=== PATIENT | female | born 1960 | race Caucasian/White ===

== ENCOUNTER 2020-05-13 07:27 | Inpatient (IN) | payer BC ==
[~2020-05-13] VITALS: Ht 162.6 cm; Wt 49.4 kg
[2020-05-13] MEDS ORDERED: ONDANSETRON HCL INJ 2MG/ML 2ML 2 MG/ML VIAL IV STA (07:50)
[2020-05-13] MEDS ORDERED: MORPHINE SULFATE 2 MG/ML SYR 1ML IV STA (07:50)
[2020-05-13] MEDS ORDERED: PANTOPRAZOLE 40 MG 10ML VIAL IV STA (07:50)
[2020-05-13] MEDS ORDERED: SODIUM CHLORIDE 0.9% 1000ML 1,000 ML IV STA (07:50)
[2020-05-13] MEDS ORDERED: SODIUM CHLORIDE 0.9% 1000ML 1,000 ML ONE (08:02)
[2020-05-13 08:10] LABS: BASOPHILS # (AUTO) 0.1 (0.0-0.1); BASOPHILS % 0.5 % (0.0-1.0); EOSINOPHILS # (AUTO) 0.1 (0.0-0.4); EOSINOPHILS % 0.7 % (0.0-6.0); HEMATOCRIT 41.2 % (34.2-44.1); LYMPHOCYTES # (AUTO) 0.8 (1.0-3.2); LYMPHOCYTES % 7.5 % (18.0-39.1); MEAN CORPUSCULAR HEMOGLOBIN 29.6 pg (28-32); MEAN CORPUSCULAR HGB CONC 31.6 g/dL (31-35); MEAN CORPUSCULAR VOLUME 93.8 fL (81-99); MONOCYTES # (AUTO) 1.1 (0.2-0.8); MONOCYTES % 10.8 % (4.4-11.3); NEUTROPHILS # (AUTO) 7.9 (2.1-6.9); NEUTROPHILS % 78.5 % (38.7-80.0); PLATELET COUNT 326 x10e3/uL (140-360); RED BLOOD COUNT 4.39 x10e6/uL (3.6-5.1); RED CELL DISTRIBUTION WIDTH 12.2 % (11.7-14.4)
[2020-05-13 08:20] LABS: INR 0.85; PROTHROMBIN TIME 12.1 seconds (11.9-14.5)
[2020-05-13 08:21] LABS: PARTIAL THROMBOPLASTIN TIME 28.4 seconds (23.8-35.5)
[2020-05-13 08:29] LABS: ALANINE AMINOTRANSFERASE 48 IU/L (0-55); ALBUMIN 3.5 g/dL (3.5-5.0); ALBUMIN/GLOBULIN RATIO 0.8 (0.8-2.0); ALKALINE PHOSPHATASE 113 IU/L (40-150); AMYLASE 54 U/L (25-125); ANION GAP 17.6 mmol/L (8-16); BLOOD UREA NITROGEN 16 mg/dL (7-26); BUN/CREATININE RATIO 12 (6-25); CALCIUM 9.7 mg/dL (8.4-10.2); CARBON DIOXIDE 27 mmol/L (22-29); CHLORIDE 100 mmol/L (98-107); CREATINE KINASE 13 IU/L (29-168); CREATININE, SERUM 1.31 mg/dL (0.57-1.11); EST GLOMERULAR FILTRATION RATE 41 ML/MIN (60-); GLUCOSE 102 mg/dL (74-118); LIPASE 29 U/L (8-78); MAGNESIUM 2.4 MG/DL (1.3-2.1); POTASSIUM 4.6 mmol/L (3.5-5.1); SODIUM 140 mmol/L (136-145)
[2020-05-13 09:26] LABS: CLARITY,URINE HAZY (CLEAR); COLOR,URINE YELLOW (YELLOW); KETONES,URINE TRACE (NEGATIVE); LEUKOCYTE ESTERASE ,URINE MODERATE (NEGATIVE); NITRITE,URINE NEGATIVE (NEGATIVE); PROTEIN,URINE DIPSTICK TRACE (NEGATIVE); URINE UROBILINOGEN 1 mg/dL (0.2 - 1)
[2020-05-13 09:45] LABS: BACTERIA,URINE MODERATE /HPF; EPITHELIAL CELLS,URINE FEW /LPF; MUCUS,URINE RARE (RARE); WBC,URINE (MAN) >50 /HPF (0-5)
[2020-05-13] MEDS ORDERED: ONDANSETRON HCL INJ 2MG/ML 2ML 2 MG/ML VIAL IV PRN (12:00)
[2020-05-13] MEDS ORDERED: MORPHINE SULFATE 2 MG/ML SYR 1ML IV PRN (12:00)
[2020-05-13 13:03] VITALS: BP 134/86
[2020-05-13] MEDS: SODIUM CHLORIDE 0.9% 1000ML 1,000 ML IV SCH ×2 (13:10→23:49)
[2020-05-13 13:16] VITALS: BP 134/86
[2020-05-13] MEDS ORDERED: BISACODYL 5 MG TAB EC PO ONE (14:30)
[2020-05-13] MEDS: DOCUSATE SODIUM 100 MG CAP PO SCH ×2 (15:03→16:00)
[2020-05-13 15:33] VITALS: BP 128/74
[2020-05-13] MEDS: LACTULOSE SYRUP 20 GM/30 ML UDC PO SCH (17:13)
[2020-05-13] MEDS: FAMOTIDINE 20 MG TAB PO SCH (17:13)
[2020-05-13] MEDS ORDERED: HYDRALAZINE HCL 20 MG/ML VIAL IV PRN (18:30)
[2020-05-13] MEDS ORDERED: CITRATE OF MAGNESIA 300ML BOTTLE PO ONE (18:30)
[2020-05-13] MEDS ORDERED: ACETAMINOPHEN 325 MG TAB PO PRN (18:30)
[2020-05-13 19:29] VITALS: BP 128/74
[2020-05-13 20:00] VITALS: BP 127/82
[2020-05-13 20:23] VITALS: BP 127/82
[2020-05-13] MEDS: MEROPENEM 1GM 100 ML IV SCH (20:57)
[2020-05-14] VITALS (8 sets, daily range): BP systolic 109–142; BP diastolic 70–84
[2020-05-14] MEDS: ACETAMINOPHEN/CODEINE 300MG - 30MG TAB PO PRN ×2 (02:06→22:08)
[2020-05-14 06:04] LABS: BASOPHILS # (AUTO) 0.1 (0.0-0.1); BASOPHILS % 0.5 % (0.0-1.0); EOSINOPHILS # (AUTO) 0.1 (0.0-0.4); EOSINOPHILS % 0.7 % (0.0-6.0); HEMATOCRIT 32.6 % (34.2-44.1); HEMOGLOBIN 10.5 g/dL (12.0-16.0); LYMPHOCYTES # (AUTO) 1.1 (1.0-3.2); LYMPHOCYTES % 11.6 % (18.0-39.1); MEAN CORPUSCULAR HEMOGLOBIN 30.4 pg (28-32); MEAN CORPUSCULAR HGB CONC 32.2 g/dL (31-35); MEAN CORPUSCULAR VOLUME 94.5 fL (81-99); MONOCYTES % 10.7 % (4.4-11.3); NEUTROPHILS # (AUTO) 6.9 (2.1-6.9); NEUTROPHILS % 72.5 % (38.7-80.0); PLATELET COUNT 299 x10e3/uL (140-360); RED BLOOD COUNT 3.45 x10e6/uL (3.6-5.1); RED CELL DISTRIBUTION WIDTH 11.9 % (11.7-14.4)
[2020-05-14 06:31] LABS: ALBUMIN 2.3 g/dL (3.5-5.0); ALBUMIN/GLOBULIN RATIO 0.7 (0.8-2.0); ANION GAP 14.4 mmol/L (8-16); CALCIUM 8.3 mg/dL (8.4-10.2); CREATININE, SERUM 0.94 mg/dL (0.57-1.11); POTASSIUM 4.4 mmol/L (3.5-5.1)
[2020-05-14 07:10] LABS: FREE T4 (FREE THYROXINE) 0.95 ng/dL (0.8-1.8); THYROID STIMULATING HORMONE 0.835 uIU/mL (0.350-4.940)
[2020-05-14] MEDS: FAMOTIDINE 20 MG TAB PO SCH ×2 (07:30→16:51)
[2020-05-14] MEDS: LACTULOSE SYRUP 20 GM/30 ML UDC PO SCH ×2 (08:59→16:51)
[2020-05-14] MEDS: DOCUSATE SODIUM 100 MG CAP PO SCH ×2 (08:59→16:51)
[2020-05-14] MEDS: MEROPENEM 1GM 100 ML IV SCH ×2 (09:07→20:58)
[2020-05-14] MEDS ORDERED: B&O 60MG R/S 60 MG SUPP PR ONE (09:07)
[2020-05-14] MEDS ORDERED: IOPAMIDOL 300MG/ML 50ML INFUS..BTL IV ONE (09:07)
[2020-05-14] MEDS ORDERED: B&O 60MG R/S 60 MG SUPP PR PRN (10:45)
[2020-05-14] MEDS ORDERED: SEVOFLURANE INHAL SOLN 250 ML PEN BTL ONE (12:44)
[2020-05-14] MEDS ORDERED: PROPOFOL IV EMULSION 10 MG/ML 20 ML VIAL ONE (12:44)
[2020-05-14] MEDS ORDERED: DEXAMETHASONE SOD PHOS INJ 4 MG/ML VIAL ONE (12:44)
[2020-05-14] MEDS ORDERED: ONDANSETRON HCL INJ 2MG/ML 2ML 2 MG/ML VIAL ONE (12:44)
[2020-05-14] MEDS ORDERED: EPHEDRINE SULFATE INJ 50 MG/ML VIAL ONE (12:44)
[2020-05-14] MEDS ORDERED: LIDOCAINE HCL 2% LOCAL INJ 5 ML SDV VIAL INJ ONE (12:44)
[2020-05-14] MEDS ORDERED: FENTANYL CITRATE/PF 100MCG/2 ML INJ ONE (12:57)
[2020-05-14] MEDS: PHENAZOPYRIDINE HCL 100 MG TAB PO PRN (14:37)
[2020-05-15] VITALS (7 sets, daily range): BP systolic 109–136; BP diastolic 58–83
[2020-05-15 05:50] LABS: BASOPHILS # (AUTO) 0.1 (0.0-0.1); BASOPHILS % 0.6 % (0.0-1.0); EOSINOPHILS # (AUTO) 0.1 (0.0-0.4); EOSINOPHILS % 0.7 % (0.0-6.0); HEMATOCRIT 31.5 % (34.2-44.1); HEMOGLOBIN 10.3 g/dL (12.0-16.0); LYMPHOCYTES # (AUTO) 1.8 (1.0-3.2); LYMPHOCYTES % 17.3 % (18.0-39.1); MEAN CORPUSCULAR HEMOGLOBIN 30.5 pg (28-32); MEAN CORPUSCULAR HGB CONC 32.7 g/dL (31-35); MEAN CORPUSCULAR VOLUME 93.2 fL (81-99); MONOCYTES # (AUTO) 1.2 (0.2-0.8); NEUTROPHILS % 66.6 % (38.7-80.0); PLATELET COUNT 351 x10e3/uL (140-360); RED BLOOD COUNT 3.38 x10e6/uL (3.6-5.1); RED CELL DISTRIBUTION WIDTH 11.9 % (11.7-14.4)
[2020-05-15 06:18] LABS: ALBUMIN 2.4 g/dL (3.5-5.0); ALBUMIN/GLOBULIN RATIO 0.7 (0.8-2.0); ANION GAP 11.3 mmol/L (8-16); CALCIUM 8.5 mg/dL (8.4-10.2); POTASSIUM 4.3 mmol/L (3.5-5.1)
[2020-05-15] MEDS: MEROPENEM 1GM 100 ML IV SCH ×2 (09:29→21:55)
[2020-05-15] MEDS: DOCUSATE SODIUM 100 MG CAP PO SCH ×2 (09:29→17:21)
[2020-05-15] MEDS: LACTULOSE SYRUP 20 GM/30 ML UDC PO SCH ×2 (09:29→17:00)
[2020-05-15] MEDS: FAMOTIDINE 20 MG TAB PO SCH ×2 (09:29→17:21)
[2020-05-15] MEDS: PHENAZOPYRIDINE HCL 100 MG TAB PO PRN (09:38)
[2020-05-16] VITALS: BP 114/71
[2020-05-16 04:00] VITALS: BP 107/83
[2020-05-16 06:14] LABS: BASOPHILS # (AUTO) 0.1 (0.0-0.1); BASOPHILS % 0.8 % (0.0-1.0); EOSINOPHILS # (AUTO) 0.2 (0.0-0.4); EOSINOPHILS % 2.1 % (0.0-6.0); HEMATOCRIT 35.1 % (34.2-44.1); HEMOGLOBIN 11.2 g/dL (12.0-16.0); LYMPHOCYTES # (AUTO) 1.6 (1.0-3.2); LYMPHOCYTES % 20.8 % (18.0-39.1); MEAN CORPUSCULAR HEMOGLOBIN 29.7 pg (28-32); MEAN CORPUSCULAR HGB CONC 31.9 g/dL (31-35); MEAN CORPUSCULAR VOLUME 93.1 fL (81-99); MONOCYTES # (AUTO) 0.8 (0.2-0.8); MONOCYTES % 9.7 % (4.4-11.3); NEUTROPHILS # (AUTO) 4.9 (2.1-6.9); NEUTROPHILS % 63.1 % (38.7-80.0); PLATELET COUNT 410 x10e3/uL (140-360); RED BLOOD COUNT 3.77 x10e6/uL (3.6-5.1)
[2020-05-16 06:36] LABS: ALBUMIN 2.6 g/dL (3.5-5.0); ALBUMIN/GLOBULIN RATIO 0.7 (0.8-2.0); ANION GAP 15.1 mmol/L (8-16); CALCIUM 8.7 mg/dL (8.4-10.2); CREATININE, SERUM 0.96 mg/dL (0.57-1.11); POTASSIUM 4.1 mmol/L (3.5-5.1)
[2020-05-16 07:38] VITALS: BP 116/67
[2020-05-16 08:11] VITALS: BP 116/67
[2020-05-16] MEDS: LACTULOSE SYRUP 20 GM/30 ML UDC PO SCH (09:00)
[2020-05-16] MEDS: MEROPENEM 1GM 100 ML IV SCH (09:35)
[2020-05-16] MEDS: DOCUSATE SODIUM 100 MG CAP PO SCH (09:35)
[2020-05-16] MEDS: FAMOTIDINE 20 MG TAB PO SCH (09:35)
[2020-05-16 11:43] VITALS: BP 112/68
[2020-05-16] MEDS ORDERED: ONDANSETRON HCL 4 MG ORAL DISINTEGRATING TAB PO PRN (13:15)
[2020-05-16] MEDS ORDERED: PYRIDIUM100 MG PO (13:53)
[2020-05-16] MEDS ORDERED: Ondansetron Oral Disintegratin PO (13:53)
[2020-05-16] MEDS ORDERED: TYLENOL # 31 EA PO (13:53)
[2020-05-16] MEDS ORDERED: LACTULOSE20 GM/30 M PO (13:53)
[2020-05-16] MEDS ORDERED: BELLADONNA-OPI1 EACH PR (13:53)
[2020-05-16] MEDS ORDERED: ACETAMINOPHEN325 M1 PO (13:53)
[2020-05-16] MEDS ORDERED: COLACE100 MG PO (13:53)
[2020-05-16 15:39] VITALS: BP 117/70
== END 2020-05-16 16:01 | disposition home or self-care (01) | DRG 660 ==
LOC: ER 08:14 → ERHOLD 11:55 → MED/SURG 12:39
PROVIDERS: ADMIT Internal Medicine; ATTEND Internal Medicine
PROC: 0T7D8ZZ Dilation of Urethra, Via Natural or Artificial Opening Endoscopic (ICD-10-PCS; 2020-05-14)
PROC: BT141ZZ Fluoroscopy of Kidneys, Ureters and Bladder using Low Osmolar Contrast (ICD-10-PCS; 2020-05-14)
PROC: 0T778ZZ Dilation of Left Ureter, Via Natural or Artificial Opening Endoscopic (ICD-10-PCS; principal; 2020-05-14 10:30)
DX: N13.6 Pyonephrosis (principal); Z68.1 Body mass index [BMI] 19.9 or less, adult; N81.10 Cystocele, unspecified; N95.2 Postmenopausal atrophic vaginitis; N17.9 Acute kidney failure, unspecified; N81.6 Rectocele; Z85.038 Personal history of other malignant neoplasm of large intestine; Z90.49 Acquired absence of other specified parts of digestive tract; N18.9 Chronic kidney disease, unspecified; K59.00 Constipation, unspecified; D64.9 Anemia, unspecified; Z20.828 Contact with and (suspected) exposure to other viral communicable diseases; R63.6 Underweight; Z88.0 Allergy status to penicillin; Z88.8 Allergy status to other drugs, medicaments and biological substances
CPT/HCPCS: 36415; 71045; 74176; 76000; 76705; 78707; 80053; 81001; 82150; 82550; 82553; 83690; 83735; 84439; 84443; 84484; 85025; 85610; 85730; 87086; 93005; 96361; 99284; A9562; C1758; C2617; J1100; J2001; J2270; J2405; J3010; J7030; U0002

== ENCOUNTER 2020-08-11 12:10 | Inpatient (IN) | payer BC ==
[2020-08-08 16:00] LABS: INR 0.9; PROTHROMBIN TIME 12.7 seconds (11.9-14.5)
[2020-08-08 16:10] LABS: ALBUMIN/GLOBULIN RATIO 1.5 (0.8-2.0); ANION GAP 12.1 mmol/L (8-16); CALCIUM 8.9 mg/dL (8.4-10.2); CREATININE, SERUM 1.21 mg/dL (0.57-1.11); POTASSIUM 4.1 mmol/L (3.5-5.1)
[2020-08-08 16:14] LABS: BASOPHILS # (AUTO) 0.1 (0.0-0.1); EOSINOPHILS # (AUTO) 0.1 (0.0-0.4); EOSINOPHILS % 1.1 % (0.0-6.0); HEMATOCRIT 35.5 % (34.2-44.1); HEMOGLOBIN 11.5 g/dL (12.0-16.0); LYMPHOCYTES # (AUTO) 1.5 (1.0-3.2); LYMPHOCYTES % 28.7 % (18.0-39.1); MEAN CORPUSCULAR HEMOGLOBIN 29.9 pg (28-32); MEAN CORPUSCULAR HGB CONC 32.4 g/dL (31-35); MEAN CORPUSCULAR VOLUME 92.2 fL (81-99); MONOCYTES # (AUTO) 0.5 (0.2-0.8); MONOCYTES % 9.2 % (4.4-11.3); NEUTROPHILS # (AUTO) 3.1 (2.1-6.9); NEUTROPHILS % 59.8 % (38.7-80.0); PLATELET COUNT 315 x10e3/uL (140-360); RED BLOOD COUNT 3.85 x10e6/uL (3.6-5.1)
[~2020-08-11] VITALS: Ht 162.6 cm; Wt 58.1 kg
[~2020-08-11 12:10] MED LIST: ACETAMINOPHEN325 M1 PO; BELLADONNA-OPI1 EACH PR; COLACE100 MG PO; FENTANYL CITRATE/PF 100MCG/2 ML INJ ONE; LACTULOSE20 GM/30 M PO; MIDAZOLAM HCL 2 MG/2 ML VIAL ONE; Ondansetron Oral Disintegratin PO; PYRIDIUM100 MG PO; TYLENOL # 31 EA PO
[2020-08-11] MEDS ORDERED: ADVIL200 MG PO (13:21)
[2020-08-11] MEDS ORDERED: SEVOFLURANE INHAL SOLN 250 ML PEN BTL ONE (13:31)
[2020-08-11] MEDS ORDERED: DEXAMETHASONE SOD PHOS INJ 4 MG/ML VIAL ONE (13:31)
[2020-08-11] MEDS ORDERED: ONDANSETRON HCL INJ 2MG/ML 2ML 2 MG/ML VIAL ONE (13:31)
[2020-08-11] MEDS ORDERED: ROCURONIUM BROMIDE 10 MG/ML 5ML VIAL IV ONE (13:31)
[2020-08-11] MEDS ORDERED: LIDOCAINE HCL 2% LOCAL INJ 5 ML SDV VIAL INJ ONE (13:31)
[2020-08-11] MEDS ORDERED: PROPOFOL IV EMULSION 10 MG/ML 20 ML VIAL ONE (13:31)
[2020-08-11] MEDS ORDERED: CEFAZOLIN SOD 1 GM/NS 50ML 50 ML IV ONE (13:36)
[2020-08-11] MEDS ORDERED: NALOXONE HCL INJ 0.4 MG/ML AMP IV PRN (14:30)
[2020-08-11] MEDS ORDERED: DIPHENHYDRAMINE HCL INJ 50 MG/ML VIAL IM PRN (14:30)
[2020-08-11] MEDS: SODIUM CHLORIDE 0.9% 250ML IRRIG IR SCH ×3 (14:30→22:30)
[2020-08-11] MEDS ORDERED: ONDANSETRON HCL INJ 2MG/ML 2ML 2 MG/ML VIAL IV PRN (14:30)
[2020-08-11] MEDS ORDERED: MORPHINE SULFATE 1 MG/ML 30ML PCA IV PRN (14:30)
[2020-08-11] MEDS ORDERED: MANNITOL 25% 12.5GM/50ML 50 ML ONE (15:12)
[2020-08-11 17:20] LABS: BASOPHILS # (AUTO) 0.1 (0.0-0.1); BASOPHILS % 0.6 % (0.0-1.0); EOSINOPHILS % 0.2 % (0.0-6.0); HEMATOCRIT 34.2 % (34.2-44.1); HEMOGLOBIN 10.9 g/dL (12.0-16.0); LYMPHOCYTES # (AUTO) 1.4 (1.0-3.2); LYMPHOCYTES % 9.9 % (18.0-39.1); MEAN CORPUSCULAR HEMOGLOBIN 30.3 pg (28-32); MEAN CORPUSCULAR HGB CONC 31.9 g/dL (31-35); MONOCYTES # (AUTO) 0.6 (0.2-0.8); MONOCYTES % 4.1 % (4.4-11.3); NEUTROPHILS % 84.4 % (38.7-80.0); PLATELET COUNT 269 x10e3/uL (140-360)
[2020-08-11] MEDS ORDERED: MEPERIDINE HCL INJ 25 MG/ML VIAL ONE (17:25)
[2020-08-11] MEDS ORDERED: FENTANYL CITRATE/PF 100MCG/2 ML INJ ONE (17:28)
[2020-08-11] MEDS ORDERED: ACETAMINOPHEN 1000 MG/100 ML IV PRN (17:30)
[2020-08-11] MEDS ORDERED: MORPHINE SULFATE 1 MG/ML 30ML PCA ONE (17:35)
[2020-08-11 17:40] LABS: ANION GAP 16.1 mmol/L (8-16); CALCIUM 8.5 mg/dL (8.4-10.2); CREATININE, SERUM 1.1 mg/dL (0.57-1.11); POTASSIUM 4.1 mmol/L (3.5-5.1)
[2020-08-11] MEDS: D5.45%NS/KCL 20MEQ 1,000 ML IV SCH ×2 (17:45→23:04)
[2020-08-11 19:11] VITALS: BP 141/87
[2020-08-11 19:55] VITALS: BP 148/81
[2020-08-11 20:00] VITALS: BP 148/81
[2020-08-11 20:57] VITALS: BP 148/81
[2020-08-11] MEDS: CEFAZOLIN SOD 1 GM/NS 50ML 50 ML IV SCH (21:00)
[2020-08-12] VITALS (8 sets, daily range): BP systolic 95–137; BP diastolic 62–80
[2020-08-12] MEDS: SODIUM CHLORIDE 0.9% 250ML IRRIG IR SCH ×3 (01:56→08:38)
[2020-08-12] MEDS: CEFAZOLIN SOD 1 GM/NS 50ML 50 ML IV SCH ×3 (05:01→21:15)
[2020-08-12 06:57] LABS: BASOPHILS % 0.2 % (0.0-1.0); HEMATOCRIT 34.2 % (34.2-44.1); HEMOGLOBIN 10.8 g/dL (12.0-16.0); LYMPHOCYTES # (AUTO) 0.8 (1.0-3.2); LYMPHOCYTES % 6.6 % (18.0-39.1); MEAN CORPUSCULAR HEMOGLOBIN 29.6 pg (28-32); MEAN CORPUSCULAR HGB CONC 31.6 g/dL (31-35); MEAN CORPUSCULAR VOLUME 93.7 fL (81-99); MONOCYTES # (AUTO) 1.6 (0.2-0.8); MONOCYTES % 13.4 % (4.4-11.3); NEUTROPHILS # (AUTO) 9.6 (2.1-6.9); NEUTROPHILS % 79.6 % (38.7-80.0); PLATELET COUNT 277 x10e3/uL (140-360); RED BLOOD COUNT 3.65 x10e6/uL (3.6-5.1); RED CELL DISTRIBUTION WIDTH 11.9 % (11.7-14.4)
[2020-08-12 07:13] LABS: ANION GAP 13.7 mmol/L (8-16); CREATININE, SERUM 1.08 mg/dL (0.57-1.11); POTASSIUM 4.7 mmol/L (3.5-5.1)
[2020-08-12] MEDS: D5.45%NS/KCL 20MEQ 1,000 ML IV SCH ×3 (07:50→23:42)
[2020-08-12] MEDS ORDERED: MORPHINE SULFATE 1 MG/ML 30ML PCA IV PRN (09:45)
[2020-08-13] VITALS (7 sets, daily range): BP systolic 101–148; BP diastolic 61–73
[2020-08-13] MEDS: CEFAZOLIN SOD 1 GM/NS 50ML 50 ML IV SCH ×3 (05:15→20:37)
[2020-08-13 06:28] LABS: BASOPHILS % 0.2 % (0.0-1.0); EOSINOPHILS % 0.1 % (0.0-6.0); HEMATOCRIT 31.5 % (34.2-44.1); LYMPHOCYTES # (AUTO) 0.6 (1.0-3.2); LYMPHOCYTES % 5.9 % (18.0-39.1); MEAN CORPUSCULAR HGB CONC 31.7 g/dL (31-35); MEAN CORPUSCULAR VOLUME 94.6 fL (81-99); MONOCYTES # (AUTO) 0.9 (0.2-0.8); MONOCYTES % 8.5 % (4.4-11.3); PLATELET COUNT 228 x10e3/uL (140-360); RED BLOOD COUNT 3.33 x10e6/uL (3.6-5.1); RED CELL DISTRIBUTION WIDTH 11.9 % (11.7-14.4)
[2020-08-13 06:57] LABS: ANION GAP 9.8 mmol/L (8-16); BLOOD UREA NITROGEN 8 mg/dL (7-26); BUN/CREATININE RATIO 10 (6-25); CALCIUM 8.1 mg/dL (8.4-10.2); CARBON DIOXIDE 27 mmol/L (22-29); CHLORIDE 95 mmol/L (98-107); CREATININE, SERUM 0.81 mg/dL (0.57-1.11); EST GLOMERULAR FILTRATION RATE > 60 ML/MIN (60-); GLUCOSE 151 mg/dL (74-118); POTASSIUM 4.8 mmol/L (3.5-5.1); SODIUM 127 mmol/L (136-145)
[2020-08-13] MEDS: FAMOTIDINE 20 MG/2 ML VIAL IV SCH (08:14)
[2020-08-13] MEDS: D5.45%NS/KCL 20MEQ 1,000 ML IV SCH (10:17)
[2020-08-13] MEDS ORDERED: BISACODYL 10 MG SUPP PR NR (11:15)
[2020-08-13] MEDS: SODIUM CHLORIDE 0.9% 1000ML 1,000 ML IV SCH ×2 (11:54→22:00)
[2020-08-13] MEDS: ACETAMINOPHEN 1000 MG/100 ML IV SCH ×2 (11:54→17:49)
[2020-08-14] VITALS (8 sets, daily range): BP systolic 109–170; BP diastolic 67–88
[2020-08-14] MEDS: CEFAZOLIN SOD 1 GM/NS 50ML 50 ML IV SCH ×3 (05:15→21:00)
[2020-08-14 05:29] LABS: BASOPHILS % 0.4 % (0.0-1.0); EOSINOPHILS % 0.3 % (0.0-6.0); HEMATOCRIT 33.3 % (34.2-44.1); HEMOGLOBIN 10.7 g/dL (12.0-16.0); LYMPHOCYTES # (AUTO) 0.5 (1.0-3.2); LYMPHOCYTES % 6.3 % (18.0-39.1); MEAN CORPUSCULAR HEMOGLOBIN 29.7 pg (28-32); MEAN CORPUSCULAR HGB CONC 32.1 g/dL (31-35); MEAN CORPUSCULAR VOLUME 92.5 fL (81-99); MONOCYTES # (AUTO) 0.7 (0.2-0.8); MONOCYTES % 9.4 % (4.4-11.3); NEUTROPHILS # (AUTO) 6.5 (2.1-6.9); NEUTROPHILS % 83.2 % (38.7-80.0); PLATELET COUNT 227 x10e3/uL (140-360); RED CELL DISTRIBUTION WIDTH 11.8 % (11.7-14.4)
[2020-08-14 05:57] LABS: ANION GAP 12.1 mmol/L (8-16); BLOOD UREA NITROGEN 8 mg/dL (7-26); BUN/CREATININE RATIO 10 (6-25); CALCIUM 8.4 mg/dL (8.4-10.2); CARBON DIOXIDE 28 mmol/L (22-29); CHLORIDE 101 mmol/L (98-107); CREATININE, SERUM 0.83 mg/dL (0.57-1.11); EST GLOMERULAR FILTRATION RATE > 60 ML/MIN (60-); GLUCOSE 100 mg/dL (74-118); POTASSIUM 4.1 mmol/L (3.5-5.1); SODIUM 137 mmol/L (136-145)
[2020-08-14] MEDS: ACETAMINOPHEN 1000 MG/100 ML IV SCH ×3 (06:00→12:00)
[2020-08-14] MEDS: FAMOTIDINE 20 MG/2 ML VIAL IV SCH (08:30)
[2020-08-14] MEDS: SODIUM CHLORIDE 0.9% 1000ML 1,000 ML IV SCH (10:15)
[2020-08-14 10:22] LABS: LYMPHOCYTES % (MANUAL) 10 % (19-48); MONOCYTES % (MANUAL) 8 % (3.4-9.0); NEUTROPHILS % (MANUAL) 82 % (40-74); PLATELET ESTIMATE ADEQUATE; PLATELET MORPHOLOGY COMMENT NORMAL; RBC MORPHOLOGY COMMENT NORMAL
[2020-08-14] MEDS ORDERED: BISACODYL 10 MG SUPP PR ONE (10:30)
[2020-08-14] MEDS: TRAMADOL HCL 50 MG TAB PO PRN ×2 (15:29→21:00)
[2020-08-15] VITALS (8 sets, daily range): BP systolic 143–173; BP diastolic 88–112
[2020-08-15 05:30] LABS: BASOPHILS # (AUTO) 0.1 (0.0-0.1); BASOPHILS % 0.8 % (0.0-1.0); EOSINOPHILS # (AUTO) 0.1 (0.0-0.4); EOSINOPHILS % 1.6 % (0.0-6.0); HEMATOCRIT 37.7 % (34.2-44.1); HEMOGLOBIN 12.1 g/dL (12.0-16.0); LYMPHOCYTES # (AUTO) 0.8 (1.0-3.2); LYMPHOCYTES % 10.9 % (18.0-39.1); MEAN CORPUSCULAR HEMOGLOBIN 29.9 pg (28-32); MEAN CORPUSCULAR HGB CONC 32.1 g/dL (31-35); MEAN CORPUSCULAR VOLUME 93.1 fL (81-99); MONOCYTES # (AUTO) 0.7 (0.2-0.8); MONOCYTES % 9.4 % (4.4-11.3); NEUTROPHILS # (AUTO) 5.9 (2.1-6.9); PLATELET COUNT 308 x10e3/uL (140-360); RED BLOOD COUNT 4.05 x10e6/uL (3.6-5.1); RED CELL DISTRIBUTION WIDTH 11.7 % (11.7-14.4)
[2020-08-15] MEDS: SODIUM CHLORIDE 0.9% 1000ML 1,000 ML IV SCH (05:45)
[2020-08-15] MEDS: CEFAZOLIN SOD 1 GM/NS 50ML 50 ML IV SCH ×2 (05:45→11:30)
[2020-08-15 05:58] LABS: ANION GAP 16.4 mmol/L (8-16); BLOOD UREA NITROGEN 10 mg/dL (7-26); BUN/CREATININE RATIO 12 (6-25); CALCIUM 9.3 mg/dL (8.4-10.2); CARBON DIOXIDE 29 mmol/L (22-29); CHLORIDE 98 mmol/L (98-107); CREATININE, SERUM 0.84 mg/dL (0.57-1.11); EST GLOMERULAR FILTRATION RATE > 60 ML/MIN (60-); GLUCOSE 89 mg/dL (74-118); POTASSIUM 3.4 mmol/L (3.5-5.1); SODIUM 140 mmol/L (136-145)
[2020-08-15] MEDS: FAMOTIDINE 20 MG/2 ML VIAL IV SCH (08:12)
[2020-08-15] MEDS ORDERED: ULTRAM50 MG PO (10:58)
[2020-08-15] MEDS ORDERED: ONDANSETRON HCL 4 MG ORAL DISINTEGRATING TAB PO PRN (11:00)
[2020-08-15] MEDS ORDERED: METOPROLOL TARTRATE INJ 1 MG/ML VIAL IV PRN (12:00)
[2020-08-15] MEDS ORDERED: METOPROLOL SUCC50 MG PO (13:01)
[2020-08-15] MEDS ORDERED: ULTRAM 50MG50 MG PO (13:01)
[2020-08-15] MEDS ORDERED: METOPROLOL SUCCINATE 50 MG TAB XL PO ONE (13:30)
== END 2020-08-15 15:15 | disposition home or self-care (01) | DRG 660 ==
LOC: OR 12:10 → PACU V 16:14 → MED/SURG 18:18
PROVIDERS: ADMIT Internal Medicine; ATTEND Internal Medicine
PROC: 0TC70ZZ Extirpation of Matter from Left Ureter, Open Approach (ICD-10-PCS; 2020-08-11)
PROC: 0TT10ZZ Resection of Left Kidney, Open Approach (ICD-10-PCS; principal; 2020-08-11 14:00)
DX: N26.1 Atrophy of kidney (terminal) (principal); E87.1 Hypo-osmolality and hyponatremia; N18.30 Chronic kidney disease, stage 3 unspecified; N95.2 Postmenopausal atrophic vaginitis; N81.89 Other female genital prolapse; N81.6 Rectocele; N13.5 Crossing vessel and stricture of ureter without hydronephrosis; N26.9 Renal sclerosis, unspecified; Z96.0 Presence of urogenital implants; Z85.038 Personal history of other malignant neoplasm of large intestine; R00.0 Tachycardia, unspecified; Z20.822 Contact with and (suspected) exposure to COVID-19; N13.1 Hydronephrosis with ureteral stricture, not elsewhere classified; I10 Essential (primary) hypertension
CPT/HCPCS: 36415; 71045; 80048; 80053; 83735; 85025; 85610; 85730; 86850; 86900; 88307; 93005; J0690; J1100; J2001; J2150; J2175; J2250; J2270; J2405; J3010; J7030; U0002

== ENCOUNTER 2021-06-09 01:58 | Emergency (ER) | payer BC ==
[~2021-06-09] VITALS: Ht 162.6 cm; Wt 58.1 kg
[~2021-06-09 01:58] MED LIST changes: +ADVIL200 MG PO; -FENTANYL CITRATE/PF 100MCG/2 ML INJ ONE; +METOPROLOL SUCC50 MG PO; -MIDAZOLAM HCL 2 MG/2 ML VIAL ONE; +ULTRAM 50MG50 MG PO; +ULTRAM50 MG PO
== END 2021-06-09 02:41 | disposition home or self-care (01) ==
LOC: ER 02:34
DX: U07.1 COVID-19 (principal)
CPT/HCPCS: 99282